=== PATIENT | female | born 1990 | race African-American/Black ===

== ENCOUNTER 2016-11-01 12:03 | Emergency (ER) | payer BC ==
[~2016-11-01] VITALS: Ht 160 cm; Wt 49.0 kg
[2016-11-01 13:20] LABS: BILIRUBIN,URINE NEGATIVE (NEG); GLUCOSE,URINE NEGATIVE (NEG); NITRITE,URINE NEGATIVE (NEG); PH,URINE 5.5; PROTEIN,URINE NEGATIVE (NEG-TRACE)
[2016-11-01 13:24] LABS: NEG OBC UR NEG; POS OBC UR POS
[2016-11-01] MEDS ORDERED: KETOROLAC TROMETHAMINE 60 MG/2 ML SYRINGE. IM ONE (13:30)
[2016-11-01 13:34] LABS: BACTERIA,URINE 0 /HPF (0-FEW); RBC,URINE 0 /HPF (0-2); SQUAMOUS EPITHELIAL CELL,UR OCC /LPF
--- NOTE | 2016-11-01 14:07 | RAD ---
Pelvic ultrasound, 11/01/2016: History: Pelvic pain Transabdominal scans were obtained. The bladder was not well distended. The uterus is anteverted and measures 8.0 x 4.6 x 5.0 cm. The central uterine echo complex measures 3 mm. No uterine mass is seen. There is a 2.8 cm simple cyst in the left ovary. The right ovary is unremarkable. Blood flow is present in both ovaries. No free fluid is evident in the pelvis. IMPRESSION: 1. Left ovarian cyst. 2. The pelvic ultrasound is otherwise unremarkable.
[2016-11-01 14:35] VITALS: BP 120/61
[2016-11-01] MEDS ORDERED: IBUP-1060 PO (14:35)
--- NOTE | 2016-11-01 14:35 | PHYS DOC ---
Past Medical History Past Medical History: Other Additional Past Medical Histor: uterine cancer-chemo, scoliosis Past Surgical History: , Other Additional Past Surgical Histo: left wrist cyst removal, D&C Alcohol Use: None Drug Use: None Adult General Chief Complaint Chief Complaint: PELVIC PAIN [facility] HPI This is a 26-year-old female presents with lower pelvic pain that has been there for the last several days as well as some vaginal bleeding. Patient states she normally does not have abnormal vaginal bleeding has any explain on device that was placed several months ago by her service dismantler. She denies any dysuria or hematuria. She any fever or chills. She denies any significant past medical history other than uterine CA which she finished a course of chemotherapy for several years ago. Review of Systems Review of Systems Constitutional: Denies fever or chills [] Eyes: Denies change in visual acuity, redness, or eye pain [] HENT: Denies nasal congestion or sore throat [] Respiratory: Denies cough or shortness of breath [] Cardiovascular: No additional information not addressed in HPI [] GI: Has abdominal pain, denies nausea, denies vomiting, denies bloody stools or diarrhea [] : Denies dysuria or hematuria [] Musculoskeletal: Denies back pain or joint pain [] Integument: Denies rash or skin lesions [] Neurologic: Denies headache, focal weakness or sensory changes [] Endocrine: Denies polyuria or polydipsia [] Current Medications Current Medications Current Medications Medications (Trade) Dose Ordered Sig/Raquel Start Time Stop Time Status Last Admin Dose Admin Ketorolac Tromethamine (Toradol Im) 60 mg 1X ONCE 11/01/16 13:30 11/01/16 13:32 DC 11/01/16 13:42 60 MG Allergies Allergies Allergies Coded Allergies Type Severity Reaction Last Updated Verified latex Allergy Intermediate rash 03/15/14 No Physical Exam Physical Exam Constitutional: Well developed, well nourished, no acute distress, non-toxic appearance. [] HENT: Normocephalic, atraumatic, bilateral external ears normal, oropharynx moist, no oral exudates, nose normal. [] Eyes: PERRLA, EOMI, conjunctiva normal, no discharge. [] Neck: Normal range of motion, no tenderness, supple, no stridor. [] Cardiovascular:Heart rate regular rhythm, no murmur [] Lungs & Thorax: Bilateral breath sounds clear to auscultation [] Abdomen: Bowel sounds normal, soft, moderate suprapubic tenderness, no masses, no pulsatile masses. [] Pelvic exam: Closed cervical os with scant bleeding seen. There is no CMT and minimal left adnexal tenderness. Skin: Warm, dry, no erythema, no rash. [] Back: No tenderness, no CVA tenderness. [] Extremities: No tenderness, no cyanosis, no clubbing, ROM intact, no edema. [] Neurologic: Alert and oriented X 3, normal motor function, normal sensory function, no focal deficits noted. [] Psychologic: Affect normal, judgement normal, mood normal. [] Current Patient Data Vital Signs Vital Signs Date Time Temp Pulse Resp B/P Pulse Ox O2 Delivery O2 Flow Rate FiO2 11/01/16 14:35 62 16 120/61 98 Room Air 11/01/16 13:19 98.0 98.0 Lab Values Laboratory Tests Test 11/01/16 13:05 11/01/16 13:08 Urine Collection Type Unknown Urine Color Yellow Urine Clarity Clear Urine pH 5.5 Urine Specific [place] 1.025 Urine Protein Negativemg/dL (NEG-TRACE) Urine Glucose (UA) Negativemg/dL (NEG) Urine Ketones (Stick) 15mg/dL (NEG) Urine Blood Large (NEG) Urine Nitrite Negative (NEG) Urine Bilirubin Negative (NEG) Urine Urobilinogen Dipstick 1.0mg/dL (0.2 mg/dL) Urine Leukocyte Esterase Negative (NEG) Urine RBC 0/HPF (0-2) Urine WBC 5-10/HPF (0-4) Urine Squamous Epithelial Cells Occ/LPF Urine Bacteria 0/HPF (0-FEW) Urine Mucus Marked/LPF Urine Test Negative (NEG) POC Urine HCG, Qualitative Hcg negative (Negative) Microbiology 11/01/16 Wet Prep - Final, Complete EKG EKG [] Radiology/Procedures Radiology/Procedures Transvaginal OB ultrasound demonstrated the following: Transabdominal scans were obtained. The bladder was not well distended. The uterus is anteverted and measures 8.0 x 4.6 x 5.0 cm. The central uterine echo complex measures 3 mm. No uterine mass is seen. There is a 2.8 cm simple cyst in the left ovary. The right ovary is unremarkable. Blood flow is present in both ovaries. No free fluid is evident in the pelvis. Course & Med Decision Making Course & Med Decision Making Pertinent Labs and Imaging studies reviewed. (See chart for details) 22-year-old female has a transvaginal ultrasound demonstrates a left ovarian cyst which is likely the source of her pain. Her pelvic exam was essentially unremarkable with minimal bleeding noted. A urinalysis was also checked and was negative for any infection or .. I'll be discharging the patient home with a course of Motrin and close follow-up with her service dismantler tomorrow. Patient was able to make an appointment while in the ER with her service dismantler to be seen tomorrow. She is given strict instruction return if her pain bleeding should worsen. Dragon Disclaimer Dragon Disclaimer This electronic medical record was generated, in whole or in part, using a voice recognition dictation system. Departure Departure Impression: Primary Impression: Ovarian cyst Additional Impression: DUB (dysfunctional uterine bleeding) Disposition: 01 HOME, SELF-CARE Admitting Physician: Other Condition: STABLE Referrals: NO PCP (PCP) Patient Instructions: Ovarian Cyst, Uterine Bleeding, Dysfunctional, Easy-to- Read Additional Instructions: Please follow up with your OB doctor tomorrow in 24 hours regarding your recent pain and bleeding. Return to the ER if you develop any worsening of your symptoms or pain. Take your motrin for your pain. Scripts Ibuprofen 800 Mg [id number] Mg PO PRN Q6HRS PRN INFLAMMATION #20 TAB Prov:BALDEMAR CRISTINA DO 11/01/16 Problem Qualifiers BALDEMAR CRISTINA DO Nov 01, 2016 14:35
== END 2016-11-01 15:07 | disposition home or self-care (01) ==
LOC: ER 12:03
DX: N83.202 Unspecified ovarian cyst, left side (principal); N93.8 Other specified abnormal uterine and vaginal bleeding; Z85.42 Personal history of malignant neoplasm of other parts of uterus; Z91.040 Latex allergy status
CPT/HCPCS: 76856; 81001; 81025; 87086; 96372; 99285; J1885; Q0111

== ENCOUNTER 2017-05-09 20:28 | Emergency (ER) | payer BC ==
[~2017-05-09] VITALS: Ht 160 cm; Wt 45.4 kg
[~2017-05-09 20:28] MED LIST: IBUP-1060 PO
[2017-05-09 20:35] VITALS: BP 124/85
[2017-05-09] MEDS ORDERED: NAPROXEN 500 MG TABLET PO STA (20:41)
[2017-05-09] MEDS ORDERED: silver sulfADIAZINE 1% CREAM 25GM TUBE. TP ONE (20:45)
[2017-05-09] MEDS ORDERED: HYDR-971 PO (20:45)
[2017-05-09] MEDS ORDERED: HYDROcodone/APAP 5/325MG 1 TAB TABLET PO ONE (20:45)
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
== END 2017-05-09 21:00 | disposition home or self-care (01) ==
LOC: ER 20:28
DX: T24.211A Burn of second degree of right thigh, initial encounter (principal); T24.202A Burn of second degree of unspecified site of left lower limb, except ankle and foot, initial encounter; T31.0 Burns involving less than 10% of body surface; M41.9 Scoliosis, unspecified; Z91.040 Latex allergy status; X10.0XXA Contact with hot drinks, initial encounter; Y93.89 Activity, other specified; Y92.89 Other specified places as the place of occurrence of the external cause; Y99.8 Other external cause status
CPT/HCPCS: 16020; 99285-25

== ENCOUNTER 2017-10-23 12:46 | Emergency (ER) | payer BC | END 2017-10-23 14:23 | disposition home or self-care (01) | LOC: ER 12:46 | DX: H00.024 Hordeolum internum left upper eyelid (principal); M41.9 Scoliosis, unspecified; Z91.040 Latex allergy status | CPT/HCPCS: 99283 ==

== ENCOUNTER 2018-09-10 20:52 | Emergency (ER) | payer OTHER, BC ==
[2017-10-23 14:01] VITALS: BP 96/47
[~2018-09-10] VITALS: Ht 160 cm; Wt 45.4 kg
[~2018-09-10 20:52] MED LIST changes: +ERYT1OIN6 OP; +HYDR-3164 PO
[2018-09-11] MEDS ORDERED: CYCL5TAB PO (08:08)
== END 2018-09-10 23:05 | disposition left against medical advice (07) ==
LOC: ER 20:52
DX: Z04.1 Encounter for examination and observation following transport accident (principal); M25.552 Pain in left hip; R07.81 Pleurodynia; M25.522 Pain in left elbow; M79.645 Pain in left finger(s); Z53.21 Procedure and treatment not carried out due to patient leaving prior to being seen by health care provider; V89.2XXA Person injured in unspecified motor-vehicle accident, traffic, initial encounter; Y93.89 Activity, other specified; Y92.89 Other specified places as the place of occurrence of the external cause; Y99.8 Other external cause status

== ENCOUNTER 2018-09-11 07:13 | Emergency (ER) | payer BC, OTHER ==
[~2018-09-11] VITALS: Ht 160 cm; Wt 45.4 kg
[2018-09-11 07:46] VITALS: BP 103/61
[2018-09-11] MEDS ORDERED: ACETAMINOPHEN 325 MG TABLET. PO ONE (08:00)
[2018-09-11] MEDS ORDERED: CYCL5TAB PO (08:08)
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
== END 2018-09-11 08:42 | disposition home or self-care (01) ==
LOC: ER 07:13
DX: Z04.1 Encounter for examination and observation following transport accident (principal); M25.522 Pain in left elbow; M54.2 Cervicalgia; R07.81 Pleurodynia; Z91.040 Latex allergy status; V43.52XA Car driver injured in collision with other type car in traffic accident, initial encounter; Y93.89 Activity, other specified; Y92.89 Other specified places as the place of occurrence of the external cause; Y99.8 Other external cause status
CPT/HCPCS: 29125; 71045; 73130; 81025; 99283